=== PATIENT | male | born 1985 | race Caucasian/White ===

== ENCOUNTER 2017-02-18 16:36 | Emergency (ER) | payer OTHER ==
[~2017-02-18] VITALS: Ht 170.2 cm; Wt 77.1 kg
[2017-02-18 16:50] VITALS: BP 132/77
== END 2017-02-18 17:54 | disposition home or self-care (01) ==
LOC: ER 16:43
DX: J20.9 Acute bronchitis, unspecified (principal)
CPT/HCPCS: 71020

== ENCOUNTER 2017-02-19 11:56 | Emergency (ER) | payer SELFPAY ==
[~2017-02-19] VITALS: Ht 177.8 cm; Wt 74.8 kg
[2017-02-19 12:20] VITALS: BP 127/79
== END 2017-02-19 16:10 | disposition left against medical advice (07) ==
LOC: ER 11:56
DX: J40 Bronchitis, not specified as acute or chronic (principal); R07.89 Other chest pain; Z53.21 Procedure and treatment not carried out due to patient leaving prior to being seen by health care provider